=== PATIENT | male | born 1990 | race Caucasian/White ===

== ENCOUNTER 2017-12-25 07:29 | Emergency (ER) | payer SELFPAY ==
[2017-12-25 08:07] LABS: ADD MAN DIFF? NO
[2017-12-25] MEDS: IV NORMAL SALINE 1000ML BAG 1,000 ML IV (08:07)
[2017-12-25] MEDS: diphenhydrAMINE 50 MG/ML VIAL IVP (08:09)
[2017-12-25] MEDS: PROCHLORPERAZINE 10 MG/2 ML VIAL. IV (08:09)
[2017-12-25 08:14] LABS: BASO % 0 % (0-3); EOS % 0 % (0-3); HEMATOCRIT 45.8 % (39.0-53.0); HEMOGLOBIN 16.7 g/dL (13.0-17.5); LYMPH # 2.1 x10^3/uL (1.0-4.8); LYMPH % 22 % (24-48); MEAN CORPUSCULAR HEMOGLOBIN 32 pg (25-35); MEAN CORPUSCULAR HGB CONC 36 g/dL (31-37); MEAN CORPUSCULAR VOLUME 89 fL (79-100); MONO # 0.7 x10^3/uL (0.0-1.1); MONO % 7 % (0-9); NEUT # 6.8 x10^3uL (1.8-7.7); NEUT % 71 % (31-73); PLATELET COUNT 204 x10^3/uL (140-400); RED BLOOD COUNT 5.16 x10^6/uL (4.30-5.70); RED CELL DISTRIBUTION WIDTH 12.6 % (11.5-14.5); WHITE BLOOD COUNT 9.6 x10^3/uL (4.0-11.0)
[2017-12-25 08:15] LABS: BILIRUBIN,URINE SMALL (NEG); CLARITY,URINE CLEAR; COLOR,URINE AMBER; GLUCOSE,URINE NEGATIVE (NEG); NITRITE,URINE NEGATIVE (NEG); PROTEIN,URINE NEGATIVE (NEG-TRACE)
[2017-12-25 08:18] LABS: ANION GAP 14 (6-14); BLOOD UREA NITROGEN 24 mg/dL (8-26); CALCIUM 9.5 mg/dL (8.5-10.1); CARBON DIOXIDE 25 mmol/L (21-32); CHLORIDE 99 mmol/L (98-107); CREATININE 1.3 mg/dL (0.7-1.3); GFR 66.2; GLUCOSE 111 mg/dL (70-99); POTASSIUM 3.2 mmol/L (3.5-5.1); SODIUM 138 mmol/L (136-145)
[2017-12-25 08:24] LABS: ALBUMIN 4.9 g/dL (3.4-5.0); ALK PHOS 64 U/L (46-116); ALT (SGPT) 39 U/L (16-63); AST (SGOT) 25 U/L (15-37); BACTERIA,URINE FEW /HPF (0-FEW); DIRECT BILIRUBIN 0.2 mg/dL (0.0-0.2); LIPASE 81 U/L (73-393); RBC,URINE OCC /HPF (0-2); SQUAMOUS EPITHELIAL CELL,UR OCC /LPF; TOTAL PROTEIN 8.1 g/dL (6.4-8.2); WBC,URINE OCC /HPF (0-4)
[2017-12-25] MEDS ORDERED: IOHEXOL 300 MG/ML 100ML VIAL. IV (08:30)
[2017-12-25] MEDS ORDERED: CONTRAST GIVEN MC (08:30)
[2017-12-25] MEDS ORDERED: IV NORMAL SALINE 1000ML BAG 1,000 ML IV (09:30)
== END 2017-12-25 10:26 | disposition home or self-care (01) ==
LOC: ER 07:29
DX: R11.2 Nausea with vomiting, unspecified (principal); R10.84 Generalized abdominal pain; F12.10 Cannabis abuse, uncomplicated
CPT/HCPCS: 36415; 74177; 76705; 80048; 80076; 81001; 83690; 85025; 96361; 96374; 96375; 99285-25; J0780; J1200; J7030

== ENCOUNTER 2017-12-28 01:54 | Emergency (ER) | payer SELFPAY ==
[2017-12-28] MEDS: ONDANSETRON ODT 4 MG TAB.RAPDIS. PO (03:20)
[2017-12-28 04:16] LABS: ADD MAN DIFF? NO
[2017-12-28 04:18] LABS: BASO % 0 % (0-3); EOS % 0 % (0-3); HEMATOCRIT 43.3 % (39.0-53.0); HEMOGLOBIN 15.5 g/dL (13.0-17.5); LYMPH # 1.1 x10^3/uL (1.0-4.8); LYMPH % 11 % (24-48); MEAN CORPUSCULAR HEMOGLOBIN 32 pg (25-35); MEAN CORPUSCULAR HGB CONC 36 g/dL (31-37); MEAN CORPUSCULAR VOLUME 89 fL (79-100); MONO # 0.6 x10^3/uL (0.0-1.1); MONO % 6 % (0-9); NEUT # 7.7 x10^3uL (1.8-7.7); NEUT % 82 % (31-73); PLATELET COUNT 184 x10^3/uL (140-400); RED BLOOD COUNT 4.87 x10^6/uL (4.30-5.70); RED CELL DISTRIBUTION WIDTH 12.6 % (11.5-14.5); WHITE BLOOD COUNT 9.4 x10^3/uL (4.0-11.0)
[2017-12-28 04:32] LABS: ANION GAP 9 (6-14); BLOOD UREA NITROGEN 15 mg/dL (8-26); BUN/CREATININE RATIO 14 (6-20); CALCIUM 8.8 mg/dL (8.5-10.1); CARBON DIOXIDE 26 mmol/L (21-32); CHLORIDE 102 mmol/L (98-107); CREATININE 1.1 mg/dL (0.7-1.3); GFR 80.3; GLUCOSE 113 mg/dL (70-99); POTASSIUM 3.2 mmol/L (3.5-5.1); SODIUM 137 mmol/L (136-145)
[2017-12-28 04:38] LABS: ALBUMIN 4.5 g/dL (3.4-5.0); ALBUMIN/GLOBULIN RATIO 1.6 (1.0-1.7); ALK PHOS 59 U/L (46-116); ALT (SGPT) 29 U/L (16-63); AST (SGOT) 16 U/L (15-37); LIPASE 76 U/L (73-393); TOTAL BILIRUBIN 1.3 mg/dL (0.2-1.0); TOTAL PROTEIN 7.4 g/dL (6.4-8.2)
== END 2017-12-28 05:00 | disposition home or self-care (01) ==
LOC: ER 01:54
DX: R11.2 Nausea with vomiting, unspecified (principal); F12.10 Cannabis abuse, uncomplicated; Z79.899 Other long term (current) drug therapy
CPT/HCPCS: 36415; 80053; 83690; 85025; 99284; Q0162

== ENCOUNTER 2018-04-24 08:52 | Inpatient (IN) | payer SELFPAY ==
[~2018-04-24] VITALS: Ht 180.3 cm; Wt 108.9 kg
[~2018-04-24 08:52] MED LIST: METO10TA81 PO; ONDA4TAB7 PO; PROM25TA10 PO
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
[2018-04-24 09:37] LABS: BASO % 0 % (0-3); EOS % 0 % (0-3); HEMATOCRIT 43.5 % (39.0-53.0); HEMOGLOBIN 15.3 g/dL (13.0-17.5); LYMPH # 0.9 x10^3/uL (1.0-4.8); LYMPH % 9 % (24-48); MEAN CORPUSCULAR HEMOGLOBIN 32 pg (25-35); MEAN CORPUSCULAR HGB CONC 35 g/dL (31-37); MEAN CORPUSCULAR VOLUME 92 fL (79-100); MONO # 0.4 x10^3/uL (0.0-1.1); MONO % 4 % (0-9); NEUT # 8.7 x10^3uL (1.8-7.7); NEUT % 86 % (31-73); PLATELET COUNT 189 x10^3/uL (140-400); RED BLOOD COUNT 4.72 x10^6/uL (4.30-5.70); RED CELL DISTRIBUTION WIDTH 12.5 % (11.5-14.5); WHITE BLOOD COUNT 10.1 x10^3/uL (4.0-11.0)
[2018-04-24 09:47] LABS: CALCIUM 9.2 mg/dL (8.5-10.1); CREATININE 1.4 mg/dL (0.7-1.3); GFR 60.3; POTASSIUM 3.5 mmol/L (3.5-5.1)
[2018-04-24 09:54] LABS: ALBUMIN 4.1 g/dL (3.4-5.0); ALBUMIN/GLOBULIN RATIO 1.2 (1.0-1.7); TOTAL BILIRUBIN 0.9 mg/dL (0.2-1.0); TOTAL PROTEIN 7.4 g/dL (6.4-8.2)
[2018-04-24 09:59] LABS: BILIRUBIN,URINE NEGATIVE (NEG); CLARITY,URINE CLOUDY; COLOR,URINE YELLOW; NITRITE,URINE NEGATIVE (NEG); PROTEIN,URINE 30 mg/dL (NEG-TRACE); UROBILINOGEN,URINE 0.2 mg/dL (0.2 mg/dL)
[2018-04-24 10:05] LABS: AMPHETAMINE/METHAMPHETAMINE NEG (NEG); BARBITURATES NEG (NEG); BENZODIAZEPINES NEG (NEG); CANNABINOIDS POS (NEG); COCAINE NEG (NEG); METHADONE NEG (NEG); OPIATES NEG (NEG); PHENCYCLIDINE NEG (NEG)
[2018-04-24 10:13] LABS: BACTERIA,URINE FEW /HPF (0-FEW); RBC,URINE 0 /HPF (0-2); SQUAMOUS EPITHELIAL CELL,UR MANY /LPF
[2018-04-24 10:14] LABS: HYALINE CASTS, URINE MANY /HPF
[2018-04-24 10:15] LABS: % BANDS 1 % (0-9); % LYMPHS 20 % (24-48); % MONOS 6 % (0-10); % SEGS 73 % (35-66); PLT ESTIMATE ADEQUATE (ADEQUATE)
[2018-04-24] MEDS ORDERED: ONDANSETRON PF 4 MG/2 ML VIAL. IV PRN (11:00)
[2018-04-24] MEDS ORDERED: ACETAMINOPHEN 500 MG TABLET PO ONE (12:30)
[2018-04-24 12:56] VITALS: BP 142/73
[2018-04-24 14:28] VITALS: BP 131/71
[2018-04-24] MEDS ORDERED: GADOBUTROL 10 MMOL/10 ML VIAL IV ONE (16:00)
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
[2018-04-24 19:00] VITALS: BP 123/61
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
[2018-04-24] MEDS: PHENYTOIN SODIUM EXTENDED 100 MG CAPSULE PO SCH (21:21)
[2018-04-24] MEDS ORDERED: ACETAMINOPHEN 325 MG TABLET. PO PRN (22:30)
[2018-04-24 23:00] VITALS: BP 122/71
[2018-04-25 03:00] VITALS: BP 120/70
[2018-04-25 07:25] VITALS: BP 121/63
--- NOTE | 2018-04-25 09:10 | RAD ---
MRI Brain with and without contrast History: Nausea, recent seizure Technique: Multiplanar, multi sequential pre and postcontrast MR imaging was performed of the brain. Contrast: 10 cc Gadavist Comparison: None Findings: There is some motion degradation. There is no evidence of recent infarct or cytotoxic edema. The ventricles, sulci, and cisterns are within normal limits in size and configuration. There is no significant midline shift, intraaxial mass effect, or focal abnormal extra-axial fluid collection. There is no significant signal abnormality of the brain parenchyma. There is no significant nodular parenchymal or leptomeningeal enhancement. Tiny focus of left parietal white matter enhancement axial image 19 is not associated with further signal change or mass effect, may be due to a tiny developmental venous anomaly or capillary telangiectasia. Hippocampal formations are symmetric in size and signal characteristics. No significant cortical dysplasia is identified. There is preservation of the major intracranial flow-voids at the skull base. The cerebellar tonsils are normal in location. There is no significant abnormality of the pineal gland or pituitary gland. There is minimal patchy bilateral ethmoid air cell mucosal thickening. Frontal sinus is not pneumatized. There is negligible patchy thickening and fluid of the right mastoid air cells. There is preserved marrow signal of the clivus. There is slightly disconjugate gaze. Impression: 1. There is no significant intracranial abnormality. Electronically signed by: Sebastian Barrera MD (04/25/2018 9:06 AM) [id number]
[2018-04-25 12:45] VITALS: BP 122/72
[2018-04-25] MEDS ORDERED: traMADol 50 MG TABLET PO PRN (14:30)
[2018-04-25] MEDS ORDERED: ACETAMINOPHEN 325 MG TABLET. PO PRN (14:30)
[2018-04-25] MEDS ORDERED: DOCUSATE SODIUM 100 MG CAPSULE. PO PRN (14:30)
[2018-04-25] MEDS ORDERED: MORPHINE SULFATE 2 MG/ML VIAL. IV PRN (14:30)
[2018-04-25] MEDS ORDERED: ONDANSETRON PF 4 MG/2 ML VIAL. IV PRN (14:30)
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
[2018-04-25 14:55] VITALS: BP 132/81
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
--- NOTE | 2018-04-25 17:05 | EEG ---
DATE OF SERVICE: 04/25/2018 EEG NUMBER: [id number]. OBJECTIVE: This is a 28-year-old male patient with a history of 2 seizures. EEG was requested to evaluate seizure activity. METHODS: Twenty electrodes were applied according to the international 10-20 electrode placement system. EKG monitoring, hyperventilation, intermittent photic stimulation, monopolar and bipolar montages are routinely utilized. The record was obtained on a digital system with video monitoring. MEDICATIONS: No anti-seizure medication before EEG. The patient has chronic drug use of marijuana. FINDINGS: 1. Background: The patient was recorded in the awake and drowsy states. No sleep state was recorded. The overall background amplitude is 10-20 microvolts. A posterior dominant rhythm of 10-12 Hz is observed. 2. Abnormalities: No specific epileptiform discharge or electrographic seizure is seen. No focal or diffuse slowing. 3. Activation: Hyperventilation was performed with good efforts and normal response. Intermittent photic stimulation was performed with photic driving. No specific epileptiform discharge or electrographic seizure induced by hyperventilation or intermittent photic stimulation. IMPRESSION: This is an extended video EEG study with total video monitoring and EEG recording time of 1 hour and 4 minutes on 04/25/2018. This EEG is a normal study for the awake and drowsy states. No sleep state was recorded. No focal, lateralizing, specific epileptiform discharge, or electrographic seizure is seen. SUGGEST: Repeat the EEG if has further seizures. JASON HERNANDEZ MD DR: YANI/raissa JOB#: [id number] / [id number]
[2018-04-25 19:47] VITALS: BP 142/74
--- NOTE | 2018-04-25 21:07 | EKG ---
[facility] [address] [place] [address] Test Date: 2018-04-24 Test Time: 09:13:53 Pat Name: BERNA ALMAGUER Department: Room: 426 1 Gender: M [employer] Apprentice: : 1990 Requested By: SHELBIE RASMUSSEN Order Number: [id number] Reading MD: Ilan Pabon Measurements Intervals [place] Rate: 94 P: 62 CO: 154 QRS: 60 QRSD: 78 T: 26 QT: 328 QTc: 415 Interpretive Statements SINUS RHYTHM LEFT ATRIAL ABNORMALITY Electronically Signed On 04-27-2018 10:54:15 CDT by Ilan Pabon
[2018-04-25] MEDS: PHENYTOIN SODIUM EXTENDED 100 MG CAPSULE PO SCH (21:51)
[2018-04-25 23:34] VITALS: BP 115/56
[2018-04-26 03:47] VITALS: BP 124/69
[2018-04-26 07:00] VITALS: BP 129/75
[2018-04-26 07:18] LABS: CALCIUM 9.4 mg/dL (8.5-10.1); POTASSIUM 3.8 mmol/L (3.5-5.1)
[2018-04-26 07:19] LABS: BASO % 0 % (0-3); EOS # 0.1 x10^3/uL (0.0-0.7); EOS % 1 % (0-3); HEMATOCRIT 43.8 % (39.0-53.0); HEMOGLOBIN 15.3 g/dL (13.0-17.5); LYMPH # 1.3 x10^3/uL (1.0-4.8); LYMPH % 24 % (24-48); MEAN CORPUSCULAR HEMOGLOBIN 32 pg (25-35); MEAN CORPUSCULAR HGB CONC 35 g/dL (31-37); MEAN CORPUSCULAR VOLUME 92 fL (79-100); MONO # 0.6 x10^3/uL (0.0-1.1); MONO % 10 % (0-9); NEUT # 3.6 x10^3uL (1.8-7.7); NEUT % 64 % (31-73); PLATELET COUNT 181 x10^3/uL (140-400); RED BLOOD COUNT 4.76 x10^6/uL (4.30-5.70); RED CELL DISTRIBUTION WIDTH 12.4 % (11.5-14.5); WHITE BLOOD COUNT 5.6 x10^3/uL (4.0-11.0)
[2018-04-26 11:00] VITALS: BP 136/72
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
--- NOTE | 2018-04-26 12:09 | PDOC ---
PROGRESS NOTES Assessment Problems Medical Problems: (1) Seizure Status: Acute New seizures, possibly related to marijuana use, workup is negative Plan Okay for discharge today Dilantin 300 mg HS. No driving x 6 months anytime after a seizure Patient education for seizure precautions. Patient education for marijuana abstinence. See Psychiatry as outpatient for drug use/abuse. FU with PCP. Follow-up with Dr. Block in 6-8 weeks Subjective No complaints, wants to go home Objective Vital Signs Date Time Temp Pulse Resp B/P (MAP) Pulse Ox O2 Delivery O2 Flow Rate FiO2 04/26/18 11:00 98.2 102 18 136/72 (93) 95 Room Air 98.2 Intake and Output 04/26/18 07:00 Intake Total 1570 ml Balance 1570 ml Intake Oral 1570 ml # Voids 3 PHYSICAL EXAM Alert. Oriented to time, place and person. PERRL. EOMI. CN: no focal findings. Muscle tone: normal. Muscle strength: 5/5 DTR: 2+ Plantar reflex: flexor Gait: normal including tandem. Sensory exam: no abnormal findings. No cerebellar signs elicited. Review of Relevant I have reviewed the following items anna marie (where applicable) has been applied. Labs Laboratory Tests Test 04/26/18 05:40 White Blood Count 5.6 x10^3/uL (4.0-11.0) Red Blood Count 4.76 x10^6/uL (4.30-5.70) Hemoglobin 15.3 g/dL (13.0-17.5) Hematocrit 43.8 % (39.0-53.0) Mean Corpuscular Volume 92 fL (79-100) Mean Corpuscular Hemoglobin 32 pg (25-35) Mean Corpuscular Hemoglobin Concent 35 g/dL (31-37) Red Cell Distribution Width 12.4 % (11.5-14.5) Platelet Count 181 x10^3/uL (140-400) Neutrophils (%) (Auto) 64 % (31-73) Lymphocytes (%) (Auto) 24 % (24-48) Monocytes (%) (Auto) 10 % (0-9) Eosinophils (%) (Auto) 1 % (0-3) Basophils (%) (Auto) 0 % (0-3) Neutrophils # (Auto) 3.6 x10^3uL (1.8-7.7) Lymphocytes # (Auto) 1.3 x10^3/uL (1.0-4.8) Monocytes # (Auto) 0.6 x10^3/uL (0.0-1.1) Eosinophils # (Auto) 0.1 x10^3/uL (0.0-0.7) Basophils # (Auto) 0.0 x10^3/uL (0.0-0.2) Sodium Level 142 mmol/L (136-145) Potassium Level 3.8 mmol/L (3.5-5.1) Chloride Level 104 mmol/L (98-107) Carbon Dioxide Level 29 mmol/L (21-32) Anion Gap 9 (6-14) Blood Urea Nitrogen 12 mg/dL (8-26) Creatinine 1.0 mg/dL (0.7-1.3) Estimated GFR (Cockcroft-Gault) 89.0 Glucose Level 82 mg/dL (70-99) Calcium Level 9.4 mg/dL (8.5-10.1) Laboratory Tests Test 04/26/18 05:40 White Blood Count 5.6 x10^3/uL (4.0-11.0) Red Blood Count 4.76 x10^6/uL (4.30-5.70) Hemoglobin 15.3 g/dL (13.0-17.5) Hematocrit 43.8 % (39.0-53.0) Mean Corpuscular Volume 92 fL (79-100) Mean Corpuscular Hemoglobin 32 pg (25-35) Mean Corpuscular Hemoglobin Concent 35 g/dL (31-37) Red Cell Distribution Width 12.4 % (11.5-14.5) Platelet Count 181 x10^3/uL (140-400) Neutrophils (%) (Auto) 64 % (31-73) Lymphocytes (%) (Auto) 24 % (24-48) Monocytes (%) (Auto) 10 % (0-9) Eosinophils (%) (Auto) 1 % (0-3) Basophils (%) (Auto) 0 % (0-3) Neutrophils # (Auto) 3.6 x10^3uL (1.8-7.7) Lymphocytes # (Auto) 1.3 x10^3/uL (1.0-4.8) Monocytes # (Auto) 0.6 x10^3/uL (0.0-1.1) Eosinophils # (Auto) 0.1 x10^3/uL (0.0-0.7) Basophils # (Auto) 0.0 x10^3/uL (0.0-0.2) Sodium Level 142 mmol/L (136-145) Potassium Level 3.8 mmol/L (3.5-5.1) Chloride Level 104 mmol/L (98-107) Carbon Dioxide Level 29 mmol/L (21-32) Anion Gap 9 (6-14) Blood Urea Nitrogen 12 mg/dL (8-26) Creatinine 1.0 mg/dL (0.7-1.3) Estimated GFR (Cockcroft-Gault) 89.0 Glucose Level 82 mg/dL (70-99) Calcium Level 9.4 mg/dL (8.5-10.1) Medications Current Medications Ondansetron HCl (Zofran) 4 mg PRN Q8HRS PRN IV NAUSEA/VOMITING; Start 04/24/18 at 11:00; Stop 04/25/18 at 10:59; Status DC Phenytoin Sodium (Dilantin) 300 mg QHS PO Last administered on 04/25/18at 21:51 ; Start 04/24/18 at 21:00 Acetaminophen (Tylenol) 1,000 mg 1X ONCE PO Last administered on 04/24/18at 12: 45; Start 04/24/18 at 12:30; Stop 04/24/18 at 12:31; Status DC Gadobutrol (Gadavist) 10 mmol 1X ONCE IV Last administered on 04/24/18at 16:14 ; Start 04/24/18 at 16:00; Stop 04/24/18 at 16:01; Status DC Acetaminophen (Tylenol) 650 mg PRN Q6HRS PRN PO MILD PAIN / TEMP; Start at 22:30; Status Cancel Acetaminophen (Tylenol) 650 mg PRN Q6HRS PRN PO FEVER; Start 04/25/18 at 14:30 Ondansetron HCl (Zofran) 4 mg PRN Q6HRS PRN IV NAUSEA/VOMITING; Start 04/25/18 at 14:30 Morphine Sulfate (Morphine Sulfate) 2 mg PRN Q2HR PRN IV MODERATE TO SEVERE PAIN; Start 04/25/18 at 14:30 Tramadol HCl (Ultram) 50 mg PRN Q6HRS PRN PO MILD TO MODERATE PAIN; Start 04/25 at 14:30 Docusate Sodium (Colace) 100 mg PRN DAILY PRN PO CONSTIPATION; Start 04/25/18 at 14:30 Active Scripts Active Reported No Known Medications Prior To Admisstion (Info) Each 1 Each Vitals/I & O Vital Sign - Last 24 Hours 04/25/18 04/25/18 04/25/18 04/25/18 12:45 14:55 19:40 19:47 Temp 97.9 98.8 99.0 97.9 98.8 99.0 Pulse 65 89 76 Resp 18 18 B/P (MAP) 122/72 (89) 132/81 (98) 142/74 (96) Pulse Ox 97 98 96 O2 Delivery Room Air Room Air Room Air Room Air 04/25/18 04/26/18 04/26/18 04/26/18 23:34 03:47 07:00 11:00 Temp 99.1 98.4 98.6 98.2 99.1 98.4 98.6 98.2 Pulse 60 70 71 102 Resp 20 20 18 18 B/P (MAP) 115/56 (75) 124/69 (87) 129/75 (93) 136/72 (93) Pulse Ox 99 99 95 95 O2 Delivery Room Air Room Air Room Air Room Air Intake and Output 04/25/18 04/25/18 04/26/18 15:00 23:00 07:00 Intake Total 960 ml 610 ml Balance 960 ml 610 ml SYDNEY CASILLAS MD Apr 26, 2018 12:09
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
--- NOTE | 2018-04-26 14:04 | DISCH ---
DISCHARGE INSTRUCTIONS Condition on Discharge Condition on Discharge: Stable Activity After Discharge Activity Instructions for Disc: Activity as tolerated, Other, see below (NO DRIVING, NO THC USE, NO SWIMMIMG, NO LADDER CLIMBING, NO POWER TOOLS) Driving Instructions after Dis: Do not drive Diet after Discharge Diet after Discharge: Regular Checks after Discharge Checks after discharge: Check blood press - daily Contacting the DRAlex after DC Call your doctor for: If your condition worsens JEREMY MOORE MD Apr 26, 2018 14:04
[2018-04-26] MEDS ORDERED: PHEN100C PO (14:06)
== END 2018-04-26 15:06 | disposition home or self-care (01) | DRG 101 ==
LOC: ER 08:52 → 4 NORTH 10:45
PROVIDERS: ADMIT Internal Medicine; ATTEND Internal Medicine
DX: G40.89 Other seizures (principal); N17.9 Acute kidney failure, unspecified; E66.01 Morbid (severe) obesity due to excess calories; S00.01XA Abrasion of scalp, initial encounter; S80.212A Abrasion, left knee, initial encounter; F12.10 Cannabis abuse, uncomplicated; S80.211A Abrasion, right knee, initial encounter; W18.39XA Other fall on same level, initial encounter; Z68.33 Body mass index [BMI] 33.0-33.9, adult; Z79.899 Other long term (current) drug therapy; Y93.89 Activity, other specified; Y92.098 Other place in other non-institutional residence as the place of occurrence of the external cause; Y99.8 Other external cause status; Z71.51 Drug abuse counseling and surveillance of drug abuser
CPT/HCPCS: 36415; 70553; 80048; 80053; 80307; 81001; 82607; 84443; 85007; 85025; 93005; 95816; A9585; G0480; 99285-25; G0479

== ENCOUNTER 2020-06-29 14:30 | Emergency (ER) | payer SELFPAY ==
[~2020-06-29] VITALS: Ht 177.8 cm; Wt 95.4 kg
[~2020-06-29 14:30] MED LIST changes: +PHEN100C PO
[2020-06-29 15:26] VITALS: BP 144/71
[2020-06-29] MEDS ORDERED: FAMO-63 PO (15:47)
[2020-06-29] MEDS ORDERED: ONDA4TAB12 PO (15:47)
--- NOTE | 2020-06-29 15:48 | PHYS DOC ---
Past Medical History Past Medical History: No Pertinent History Past Surgical History: Other Additional Past Surgical Histo: breast bx Smoking Status: Never Smoker Alcohol Use: Sober Drug Use: Marijuana General Adult EDM: Chief Complaint: NAUSEA/VOMITING/DIARRHA HPI: HPI: Patient is a 30 year old male who presents with has been Covid positive for the last week. He states that at night when he moves or rolls over goes to sit up he feels like he has to burp when he burps and then he has acid reflux and burning in the mid chest up to his throat. States he has been very nauseated since he is had Covid and he is unable to eat food due to his nausea. He states he has not vomited. He states he just has not ate because he feels nausea. He states that this time he does have slight burning in his esophagus that he rates at a 4 out of 10. Patient denies past medical history. Patient denies chest pain, shortness of air, vomiting, diarrhea, abdominal pain. Review of Systems: Review of Systems: Constitutional: Denies fever or chills. [] Eyes: Denies change in visual acuity. [] HENT: Denies nasal congestion or sore throat. [] Respiratory: Denies cough or shortness of breath. [] Cardiovascular: Denies chest pain or edema. [] GI: + Epigastric burning, denies abdominal pain, +nausea, denies vomiting, bloody stools or diarrhea. [] : Denies dysuria. [] Musculoskeletal: Denies back pain or joint pain. [] Integument: Denies rash. [] Neurologic: Denies headache, focal weakness or sensory changes. [] Endocrine: Denies polyuria or polydipsia. [] Lymphatic: Denies swollen glands. [] Psychiatric: Denies depression or anxiety. [] Heart Score: Risk Factors: Risk Factors: DM, Current or recent (<one month) smoker, HTN, HLP, family history of CAD, obesity. Risk Scores: Score 0 - 3: 2.5% MACE over next 6 weeks - Discharge Home Score 4 - 6: 20.3% MACE over next 6 weeks - Admit for Clinical Observation Score 7 - 10: 72.7% MACE over next 6 weeks - Early Invasive Strategies Allergies: Allergies: Allergies Coded Allergies Type Severity Reaction Last Updated Verified No Known Drug Allergies 12/25/17 No Physical Exam: PE: Constitutional: Well developed, well nourished, no acute distress, non-toxic appearance. [] HENT: Normocephalic, atraumatic, bilateral external ears normal, oropharynx moist, no oral exudates, nose normal. [] Eyes: PERRLA, EOMI, conjunctiva normal, no discharge. [] Neck: Normal range of motion, no tenderness, supple, no stridor. [] Cardiovascular:Heart rate regular rhythm, no murmur [] Lungs & Thorax: Bilateral breath sounds clear to auscultation [] Abdomen: Bowel sounds normal, soft, no tenderness, no masses, no pulsatile masses. [] Skin: Warm, dry, no erythema, no rash. [] Back: No tenderness, no CVA tenderness. [] Extremities: No tenderness, no cyanosis, no clubbing, ROM intact, no edema. [] Neurologic: Alert and oriented X 3, normal motor function, normal sensory function, no focal deficits noted. [] Psychologic: Affect normal, judgement normal, mood normal. Normal physical exam [] Current Patient Data: Vital Signs: Vital Signs Date Time Temp Pulse Resp B/P (MAP) Pulse Ox O2 Delivery O2 Flow Rate FiO2 06/29/20 15:26 97.6 56 18 144/71 (95) 97 Room Air 97.6 EKG: EKG: [] Radiology/Procedures: Radiology/Procedures: [] Course & Med Decision Making: Course & Med Decision Making Pertinent Labs and Imaging studies reviewed. (See chart for details) See HPI. Abdomen is soft and nontender. Skin pink warm and dry. Vital signs w ithin normal limits. Speaks in full complete sentences. Ambulatory with a steady gait. Patient states he is mainly here just for get some nausea medicine and some relief. Patient is given a GI cocktail and Zofran here. I will send him home with Pepcid and Zofran. Patient is stable and in no distress. [] Jerel Disclaimer: Jerel Disclaimer: This electronic medical record was generated, in whole or in part, using a voice recognition dictation system. Departure Departure Impression: Primary Impression: Epigastric burning sensation Additional Impression: Nausea Disposition: 01 DC HOME SELF CARE/HOMELESS Condition: STABLE Referrals: NO PCP (PCP) Patient Instructions: Gastroesophageal Reflux Disease, Adult Additional Instructions: Take medication as prescribed and with food. Eat a bland diet. Drink plenty of fluids. Scripts Ondansetron (ONDANSETRON ODT) 4 Mg Tab.rapdis 1 TAB PO PRN Q6-8HRS, #25 TAB Prov: MARCELLUS WOMACK APRN 06/29/20 Famotidine (PEPCID) 20 Mg Tablet 20 MG PO BID, #20 TAB Prov: MARCELLUS WOMACK APRN 06/29/20 MARCELLUS WOMACK APRN Jun 29, 2020 15:48
[2020-06-29] MEDS ORDERED: LIDO:MAALOX 1:1 20 ML SINGLE DOSE. SWSW ONE (16:00)
[2020-06-29] MEDS ORDERED: ONDANSETRON ODT 4 MG TAB.RAPDIS. PO ONE (16:00)
== END 2020-06-29 16:05 | disposition home or self-care (01) ==
LOC: ER 14:30
DX: R10.13 Epigastric pain (principal); R11.0 Nausea; K21.9 Gastro-esophageal reflux disease without esophagitis
CPT/HCPCS: 99283